=== PATIENT | female | born 1995 | race Caucasian/White ===

== ENCOUNTER 2016-12-01 13:59 | Emergency (ER) | payer OTHER ==
[~2016-12-01] VITALS: Ht 162.6 cm; Wt 83.9 kg
[2016-12-01 14:21] VITALS: BP 107/59
[2016-12-01 14:37] VITALS: BP 134/89
--- NOTE | 2016-12-01 15:06 | NUR ---
Patient to OF.
--- NOTE | 2016-12-01 15:06 | NUR ---
Dr. Mata evaluating patient.
--- NOTE | 2016-12-01 15:09 | NUR ---
21/F presents to ED for evaluation of lower back pain for the past couple of months. Patient states she fell a couple of months ago and was never checked by a doctor. Pt states "I went to a massage therapist but that was it." Pt also c/o left leg numbness intermittently. Patient denies N/V/D. Denies any painful urination. Patient is AOX4. VSS.
--- NOTE | 2016-12-01 15:31 | NUR ---
Patient to bed 08
--- NOTE | 2016-12-01 15:50 | NUR ---
Pt returned from x-ray and placed in bed 8.
[2016-12-01 16:09] VITALS: BP 121/76
--- NOTE | 2016-12-01 16:09 | NUR ---
Chart checked and completed. The patient's care was reviewed and supervised by Umm Ha RN.
--- NOTE | 2016-12-01 16:09 | NUR ---
Patient discharged with v/s stable. Written and verbal after care instructions given and explained. Patient alert, oriented and verbalized understanding of instructions. Ambulatory with steady gait. All questions addressed prior to discharge. ID band removed. Patient advised to follow up with PMD. Rx of motrin,robaxin given. Patient educated on indication of medication including possible reaction and side effects. Opportunity to ask questions provided and answered.
== END 2016-12-01 16:09 | disposition home or self-care (01) ==
LOC: MED 13:59
DX: S30.0XXA Contusion of lower back and pelvis, initial encounter (principal); X58.XXXA Exposure to other specified factors, initial encounter; Y93.89 Activity, other specified; Y92.89 Other specified places as the place of occurrence of the external cause; Y99.8 Other external cause status
CPT/HCPCS: 72110; 81025; 99284

== ENCOUNTER 2019-08-17 21:48 | Emergency (ER) | payer OTHER ==
[~2019-08-17] VITALS: Ht 162.6 cm; Wt 81.6 kg
--- NOTE | 2019-08-17 21:57 | NUR ---
EKG PERFORMED IN TRIAGE ROOM WITH MOTHER AND TRIAGE NURSE PRESENT
[2019-08-17 21:58] VITALS: BP 103/60
--- NOTE | 2019-08-17 21:58 | NUR ---
TO BED #06 AMBULATORY
[2019-08-17] MEDS ORDERED: KETOROLAC 60 MG/2 ML VIAL IM ONE (22:15)
--- NOTE | 2019-08-17 22:18 | NUR ---
24 YO F 5/10 PRESSURE LIKE CHEST PAIN X 40 MINS. PT REPORTS FEELINGS OF ANXIETY. ADMITS TO SMOKING MARIJUANA X 1 HOUR AGO. DENIES SOB, NVD. SKIN PINK, WARM DRY. BREATHING EVEN, UNLABORED. EKG SHOWS NSR @ 88 BPM. PMH-- DENIES RX-- DENIES
--- NOTE | 2019-08-17 22:24 | NUR ---
MEDICATED WITH 60 MG IM TORADOL FOR 5/10 CHEST PAIN. WILL REASSESS.
--- NOTE | 2019-08-17 22:48 | NUR ---
REPORTS SOME RELIEF IN CHEST PAIN; 12/04. PT STATES "IT FEELS LIKE IT'S BURNING". EXPLAINED TO PT THAT EKG WAS WNL AND PULSE IS WNL. EDUCATED ON MARIJUANA USE AND SIDE EFFECTS.
[2019-08-17 22:50] VITALS: BP 103/60
--- NOTE | 2019-08-17 22:50 | NUR ---
Patient discharged with v/s stable. Written and verbal after care instructions given and explained. Patient alert, oriented and verbalized understanding of instructions. Ambulatory with steady gait. All questions addressed prior to discharge. ID band removed. Patient advised to follow up with PMD. Rx of Motrin 800 mg given. Patient educated on indication of medication including possible reaction and side effects. Opportunity to ask questions provided and answered.
== END 2019-08-17 22:50 | disposition home or self-care (01) ==
LOC: MED 21:48
DX: R07.89 Other chest pain (principal); F17.200 Nicotine dependence, unspecified, uncomplicated; F12.90 Cannabis use, unspecified, uncomplicated
CPT/HCPCS: 93005; 96372; 99283; J1885